=== PATIENT | female | born 1945 | race Caucasian/White ===

== ENCOUNTER → 2018-12-21 | Outpatient (CLI) | payer MEDICARE, OTHER ==
[~2018-12-21] MED LIST: ANTI-DEPRESSANT; CEPH250A PO; CIPR500 PO; CONEST.9; CRUTCH3 XX; Cipro500 MG PO; DIPH25 PO; FAMO20 PO; Flagyl500 MG PO; HYDR1TAB94 PO; LEVSOD100 PO; MECL12.5 PO; METR500 PO; Norco 5-325 Ta1 EACH PO; OXYACE5T PO; PRED20 PO; PROM25 PO; Ultram50 MG PO; Valtrex1000 MG PO; Zofran Odt4 MG SL
== END | disposition home or self-care (01) ==
LOC: PLD 13:48 → LAB SHORT 13:48
DX: D48.5 Neoplasm of uncertain behavior of skin (principal)
CPT/HCPCS: 88305

== ENCOUNTER → 2019-06-27 | Outpatient (CLI) | payer MEDICARE, OTHER | LOC: LAB SHORT 12:15 → LAB EV 12:15 | DX: R30.0 Dysuria (principal); R30.9 Painful micturition, unspecified | CPT/HCPCS: 87086 ==

== ENCOUNTER 2019-12-20 09:26 | Day surgery (SDC) | payer MEDICARE ==
[~2019-12-20] VITALS: Ht 157.5 cm; Wt 80.5 kg
[~2019-12-20 09:26] MED LIST changes: +ATOR10 PO; +BENEFIBER1 EAC1 PO; +Bisoprolol Fumar5 MG PO; +EUTHYROX50 MCG PO; +LOSA25 PO; +MAGNESIUM OXID500 MG PO; +MIRALAX119 GM PO; +XARELTO20 MG PO
--- NOTE | 2019-12-20 11:00 | NUR ---
12/20/19 1100 Jailene Weaver PT D/C [facility], TRANSFERRED TO IMAGING VIA W/C BY LIAISON RN WITH SPOUSE AND BELONGINGS IN TOW. BARIUM SWALLOW ORDERED BY DR. TSAI FOR FOLLOW-UP REGARDING MASS.
== END 2019-12-20 10:57 | disposition home or self-care (01) ==
LOC: ORSCSDS 09:26
PROVIDERS: Surgery
PROC: 0DBP8ZX Excision of Rectum, Via Natural or Artificial Opening Endoscopic, Diagnostic (ICD-10-PCS; principal; 2019-12-20 10:30)
PROC: 3E0H8GC Introduction of Other Therapeutic Substance into Lower GI, Via Natural or Artificial Opening Endoscopic (ICD-10-PCS; principal; 2019-12-20 10:30)
DX: R19.5 Other fecal abnormalities (principal); D12.8 Benign neoplasm of rectum; K57.30 Diverticulosis of large intestine without perforation or abscess without bleeding; I49.9 Cardiac arrhythmia, unspecified; G47.33 Obstructive sleep apnea (adult) (pediatric); E03.9 Hypothyroidism, unspecified; K21.9 Gastro-esophageal reflux disease without esophagitis; Z79.899 Other long term (current) drug therapy; E66.9 Obesity, unspecified; Z68.32 Body mass index [BMI] 32.0-32.9, adult
CPT/HCPCS: 74270; 88305; J2704; J7120

== ENCOUNTER 2020-09-18 08:49 | Day surgery (SDC) | payer OTHER ==
[~2020-09-18] VITALS: Ht 157.5 cm; Wt 83.9 kg
[~2020-09-18 08:49] MED LIST changes: +SULTRIDS PO
== END 2020-09-18 11:09 | disposition home or self-care (01) ==
LOC: ORSCSDS 08:49
PROVIDERS: Surgery
PROC: 0DJD8ZZ Inspection of Lower Intestinal Tract, Via Natural or Artificial Opening Endoscopic (ICD-10-PCS; principal; 2020-09-18 10:00)
DX: Z12.11 Encounter for screening for malignant neoplasm of colon (principal); K57.30 Diverticulosis of large intestine without perforation or abscess without bleeding; I48.91 Unspecified atrial fibrillation; G47.33 Obstructive sleep apnea (adult) (pediatric); F32.9 Major depressive disorder, single episode, unspecified; E03.9 Hypothyroidism, unspecified; Z79.01 Long term (current) use of anticoagulants; Z79.899 Other long term (current) drug therapy
CPT/HCPCS: J0330; J0461; J2405; J2704; J7120

== ENCOUNTER 2021-10-14 06:50 | Day surgery (SDC) | payer OTHER ==
[~2021-10-14] VITALS: Ht 157.5 cm; Wt 82.1 kg
--- NOTE | 2021-10-14 12:01 | NUR ---
PATIENT ARRIVED FROM PACU TODAY 10/14/21 AT 1140. POD 0 HERNIA REPAIR WITH MESH PATIENT IS ALERT AND ORIENTED X4. VS ARE WNL AND IS ON RA. PATIENT DENIES PAIN AT THIS TIME BUT SMALL AMOUNT OF DISCOMFORT. PATIENT DENIES WANTING PAIN MEDICATIONS AT THIS TIME. ABD HAS 1 LONG STRIP OF GAUZE WITH TEGADERM THAT IS C/D/I. ABD IS SOFT BUT TENDER TO TOUCH. BOWEL TONES ARE ACTIVE. TOLERATING A SMALL AMOUNT OF WATER AT THIS TIME. SBA WITH FWW AND GAIT BELT. PATIENT IS LAYING IN BED WITH CALL LIGHT IN REACH.
--- NOTE | 2021-10-14 15:49 | NUR ---
SHIFT SUMMARY: POD 0 HERNIA REPAIR WITH MESH PATIENT IS ALERT AND ORIENTED X4. VS ARE WNL AND IS ON RA. PAIN IS MANAGED SO FAR THIS SHIFT WITH 1 NORCO. CASSI HAS GAUZE AND TEGADERM THAT IS C/D/I. ABD TONES ARE ACTIVE AND IS TOLERATING SMALL AMOUNTS OF PO INTAKE. SHE IS VOIDING AND PASSING GAS. SHE IS A SBA WITH FWW AND GAIT BELT. CALLS APPROPRIATELY. CALL LIGHT WITHIN REACH. SHE IS LAYING IN BED ON THE PHONE. THE PLAN IS TO DISCHARGE HOME TOMORROW IF APPROPRIATE.
--- NOTE | 2021-10-14 18:27 | NUR ---
PATIENT WAS COMPLAINING OF CHEST PAIN. EDUCATED PATIENT ABOUT GAS PAIN AFTER SURGERY CAN FEEL LIKE CHEST PAIN. DR. TSAI WAS NOTIFIED AND SAID TO WAIT 20 MINS THEN RE-EVALUATE. CHECKED ON PATIENT ABOUT 20 MINS LATER AND SHE REPORTS NO MORE CHEST PAIN AFTER BURPING/HAVING FLATUS. CALL LIGHT WITHIN REACH.
--- NOTE | 2021-10-15 07:10 | NUR ---
SUMMARY AMBULATORY,TOLERATING PO AND VOIDING, VERB PAIN MEDS EFFECTIVE.
[2021-10-15] MEDS ORDERED: Norco 10-325 T1 EACH PO (13:51)
--- NOTE | 2021-10-15 14:29 | NUR ---
DISCHARGE PT WAS PROVIDED WITH WRITTEN AND VERBAL DISCHARE INSTRUCTIONS, SHE REPORTED UNDERSTANDING. CLEAN DRESSINGS PROVIDED. PT AMBULATED OUT WITHOUT NEED FOR ASSISTANCE.
== END 2021-10-15 14:27 | disposition home or self-care (01) ==
LOC: ORSCMMR 06:50 → ORD 07:30 → ORSCMMR 08:30 → SURS 11:35 → ORSCMMR 10-15 14:27
PROVIDERS: Surgery
PROC: 0WUF0JZ Supplement Abdominal Wall with Synthetic Substitute, Open Approach (ICD-10-PCS; principal; 2021-10-14 08:30)
DX: K43.2 Incisional hernia without obstruction or gangrene (principal); I10 Essential (primary) hypertension; I48.91 Unspecified atrial fibrillation; Z79.01 Long term (current) use of anticoagulants; E78.5 Hyperlipidemia, unspecified; G47.33 Obstructive sleep apnea (adult) (pediatric); K21.9 Gastro-esophageal reflux disease without esophagitis; Z79.899 Other long term (current) drug therapy; E03.9 Hypothyroidism, unspecified; F32.A Depression, unspecified
CPT/HCPCS: A9270; C1781; J0690; J1100; J2250; J2405; J2704; J3010; J7040; J7120